=== PATIENT | male | born 1990 | race Caucasian/White ===

== ENCOUNTER 2018-07-18 14:34 | Emergency (ER) | payer MEDICAID, OTHER ==
--- NOTE | 2018-07-18 14:46 | ED Physician Documentation ---
History of Present Illness - Stated complaint Stated Complaint: ETOH WITHDRAWL - Chief complaint Chief Complaint: General - History obtained from History obtained from: Patient - Additonal information Additional information: Patient is a 27-year-old male with history of alcohol use presenting with concerns for alcohol withdrawal and request for resources to help stop drinking alcohol. Patient reports that he has Jay started looking into options such as rehab. Patient reports he has stopped drinking in the past and during one episode of sobriety, he suffered a seizure, likely from alcohol withdrawal. Patient denies hallucinations at this time, but admits to nausea, vomiting, diarrhea without abdominal pain or urinary changes. Patient also believes he felt shaky at home prior to ED arrival. Patient denies use of other recreational drugs except for marijuana. No other improving or worsening factors noted to his symptoms.Last alcohol intake about 2 hours ago. Review of Systems Constitutional: denies: Fever GI: reports: Nausea, Vomiting, Diarrhea. denies: Abdominal Pain PD PAST MEDICAL HISTORY - Past Medical History Past Medical History: No - Past Surgical History Past Surgical History: No - Present Medications Home Medications: Ambulatory Orders Medication Instructions Recorded Confirmed chlordiazePOXIDE [Librium] 25 mg PO Q6H #12 capsule 07/18/18 - Allergies Allergies/Adverse Reactions: Allergies Allergy/AdvReac Type Severity Reaction Status Date / Time No Known Drug Allergies Allergy Verified 07/18/18 14:37 PD ED PE NORMAL - General General: Alert and oriented X 3, No acute distress, Well developed/nourished - HEENT HEENT: Atraumatic, PERRL, Moist mucous membranes, Pharynx benign - Cardiac Cardiac: RRR, No murmur - Respiratory Respiratory: No respiratory distress, Clear bilaterally - Abdomen Abdomen: Normal bowel sounds, Soft, Non tender, Non distended - Derm Derm: Normal color, Warm and dry, No rash - Extremities Extremities: No deformity - Neuro Neuro: Alert and oriented X 3, No motor deficit, No sensory deficit - Psych Psych: Normal affect Results - Vitals Vitals: Vital Signs - 24 hr 07/18/18 07/18/18 14:37 15:09 Temperature 37.3 C Heart Rate 93 Respiratory 16 18 Rate Blood Pressure 149/94 H O2 Saturation 97 Oxygen O2 Source Room air - Labs Labs: Laboratory Tests 07/18/18 07/18/18 07/18/18 14:55 15:05 15:05 WBC 8.5 RBC 4.86 Hgb 15.8 Hct 45.9 MCV 94.4 H MCH 32.5 H MCHC 34.4 RDW 13.4 Plt Count 136 MPV 7.9 Neut # (Auto) 6.1 Lymph # (Auto) 1.7 [place] # (Auto) 0.6 Eos # (Auto) 0.0 Baso # (Auto) 0.1 Absolute Nucleated RBC 0.00 Nucleated RBC % 0.0 Sodium 136 Potassium 4.2 Chloride 97 L Carbon Dioxide 22 Anion Gap 17.0 H BUN 8 Creatinine 0.6 Estimated GFR (MDRD) 159 Glucose 98 Calcium 9.4 Total Bilirubin 1.1 H AST 146 H ALT 146 H Alkaline Phosphatase 121 Total Protein 8.4 H Albumin 5.1 Globulin 3.3 Albumin/Globulin Ratio 1.5 Lipase 31 Urine Color YELLOW Urine Clarity CLEAR Urine pH 5.5 Ur Specific [place] 1.015 Urine Protein TRACE Urine Glucose (UA) NEGATIVE Urine Ketones 15 H Urine Occult Blood TRACE-INTA Urine Nitrite NEGATIVE Urine Bilirubin NEGATIVE Urine Urobilinogen 0.2 (NORMAL) Ur Leukocyte Esterase NEGATIVE Ur Microscopic Review NOT INDICATED Urine Culture Comments NOT INDICATED PD MEDICAL DECISION MAKING - ED course Complexity details: reviewed old records, reviewed results, re-evaluated patient, considered differential, d/w patient ED course: Discussed ER options with patient for alcohol withdrawal, although do not find evidence of acute withdrawal or intoxication on exam. Patient does not appear tachycardic, extremely hypertensive, or tremulous. Patient does admit to last drink being several hours ago. Feel appropriate to give Zofran for reported nausea, as well as banana bag for hydration and chronic alcohol use. Will obtain screening labs and urinalysis to further evaluate, but do not find evidence of acute pathology or systemic illness on exam or per report. Did provide additional resources to patient while in ED.Patient remained comfortable in the ED and did not find evidence of acute withdrawal while he was here. Additionally, vital signs remained within normal limits. Screening lab work and urinalysis returned relatively unremarkable except for a bump in LFTs, likely due to his chronic alcohol use. Advised patient of results and recommendations and discussed use of Librium as an outpatient. Feel that patient is appropriate and responsible enough for such. Also discussed strict return precautions and follow-up. Patient voiced understanding and is comfortable with discharge plan. Departure - Departure Disposition: 01 Home, Self Care Clinical Impression: Alcohol withdrawal Qualifiers: Complication of substance-induced condition: uncomplicated Qualified Code(s): F10.230 - Alcohol dependence with withdrawal, uncomplicated Condition: Good Instructions: ED Withdrawal Alcohol Follow-Up: your,doctor [Other] - Within 3 Days Prescriptions: chlordiazePOXIDE [Librium] 25 mg PO Q6H #12 capsule Comments: Please avoid alcohol and all recreational drugs. Please take Librium as pre scribed to help with alcohol withdrawal symptoms. Do not combine with alcohol or other medications. Please follow-up with primary care physician in next 1-2 days and return to ED sooner if experience worsening symptoms or have other concerns. Recommend attending AA meetings and looking further into detox or rehab facilities.
[2018-07-18 15:04] LABS: BILIRUBIN,URINE NEGATIVE (NEGATIVE); GLUCOSE, URINE (UA) NEGATIVE (NEGATIVE); KETONES,URINE (UA) 15 mg/dL (NEGATIVE); LEUKOCYTE ESTERASE, URINE NEGATIVE (NEGATIVE); NITRITE,URINE NEGATIVE (NEGATIVE); OCCULT BLOOD,URINE TRACE-INTA (NEGATIVE); PH,URINE 5.5 PH (5.0-7.5); PROTEIN,URINE TRACE mg/dL (NEGATIVE); UROBILINOGEN,URINE 0.2 (NORMAL) E.U./dL (NORMAL)
[2018-07-18 15:07] LABS: CLARITY,URINE CLEAR (CLEAR)
[2018-07-18] MEDS: ONDANSETRON 4 MG/2 ML VIAL IVP STA (15:09)
[2018-07-18 15:17] LABS: BASOPHILS # (AUTO) 0.1 10^3/uL (0.0-0.1); BASOPHILS % (AUTO) 1.3 %; EOSINOPHILS % (AUTO) 0.1 %; HGB - HEMOGLOBIN 15.8 g/dL (14.0-18.0); LYMPHOCYTES # (AUTO) 1.7 10^3/uL (1.5-3.5); MEAN CORPUSCULAR HEMOGLOBIN 32.5 pg (27.0-31.0); MEAN CORPUSCULAR HGB CONC 34.4 g/dL (32.0-36.0); MEAN CORPUSCULAR VOLUME 94.4 fL (80.0-94.0); MEAN PLATELET VOLUME 7.9 fL (7.4-11.4); MONOCYTES # (AUTO) 0.6 10^3/uL (0.0-1.0); NEUTROPHILS # (AUTO) 6.1 10^3/uL (1.5-6.6); NEUTROPHILS % (AUTO) 71.6 %; PLT - PLATELET COUNT 136 10^3/uL (130-450); RED BLOOD COUNT 4.86 10^6/uL (4.70-6.10); RED CELL DISTRIBUTION WIDTH 13.4 % (12.0-15.0); WHITE BLOOD COUNT 8.5 x10^3/uL (4.8-10.8)
[2018-07-18 15:29] LABS: ALBUMIN 5.1 g/dL (3.2-5.5); ALBUMIN/GLOBULIN RATIO 1.5 (1.0-2.2); BILIRUBIN,TOTAL 1.1 mg/dL (0.2-1.0); CALCIUM 9.4 mg/dL (8.5-10.3); CREATININE 0.6 mg/dL (0.6-1.2); TOTAL PROTEIN 8.4 g/dL (6.7-8.2)
[2018-07-18] MEDS: FOLIC ACID INJ 1 MG, THIAMINE INJ 100 MG, MAGNESIUM SULFATE 2 GM, MULTIVITAMIN 10 ML in... IV STA ×5 (15:34)
[2018-07-18 16:22] VITALS: BP 157/88
== END 2018-07-18 16:30 | disposition home or self-care (01) ==
LOC: ED 14:34
DX: F10.230 Alcohol dependence with withdrawal, uncomplicated (principal)
CPT/HCPCS: 36415; 80053; 81001; 81003; 83690; 85025; 87086; 96365; 96375; 99283

== ENCOUNTER 2020-01-12 12:51 | Emergency (ER) | payer MEDICAID ==
--- NOTE | 2020-01-12 13:46 | XRAY Report ---
PROCEDURE: Chest 1 View X-Ray INDICATIONS: Chest pain TECHNIQUE: One view of the chest was acquired. COMPARISON: None FINDINGS: Surgical changes and devices: None. Lungs and pleura: No pleural effusions or pneumothorax. Lungs are clear. Mediastinum: Mediastinal contours appear normal. Heart size is normal. Bones and chest wall: No suspicious bony lesions. Overlying soft tissues appear unremarkable. IMPRESSION: Normal portable chest. Reviewed by: Cricket Monson MD on 01/12/2020 12:45 PM [facility] Approved by: Cricket Monson MD on 01/12/2020 12:45 PM [facility] Station ID: [id number]
[2020-01-12 13:49] LABS: BASOPHILS # (AUTO) 0.1 10^3/uL (0.0-0.1); BASOPHILS % (AUTO) 0.5 %; EOSINOPHILS % (AUTO) 0.2 %; LYMPHOCYTES # (AUTO) 1.8 10^3/uL (1.5-3.5); LYMPHOCYTES % (AUTO) 13.7 %; MEAN CORPUSCULAR HEMOGLOBIN 34.4 pg (27.0-31.0); MEAN CORPUSCULAR HGB CONC 34.5 g/dL (32.0-36.0); MEAN CORPUSCULAR VOLUME 99.8 fL (80.0-94.0); MEAN PLATELET VOLUME 10.2 fL (7.4-11.4); MONOCYTES % (AUTO) 7.9 %; NEUTROPHILS % (AUTO) 77.3 %; PLT - PLATELET COUNT 162 10^3/uL (130-450); RED BLOOD COUNT 4.94 10^6/uL (4.70-6.10); RED CELL DISTRIBUTION WIDTH 12.7 % (12.0-15.0)
[2020-01-12 14:02] LABS: ALBUMIN 5.4 g/dL (3.2-5.5); ALBUMIN/GLOBULIN RATIO 1.4 (1.0-2.2); CALCIUM 10.4 mg/dL (8.5-10.3); CREATININE 1.4 mg/dL (0.6-1.2); TOTAL PROTEIN 9.3 g/dL (6.7-8.2)
--- NOTE | 2020-01-12 14:47 | ED Physician Documentation ---
History of Present Illness - Stated complaint Stated Complaint: CHEST/ABD PX, DIFFICULTY BREATHING, SORE THROAT - Chief complaint Chief Complaint: Cardiac - History obtained from History obtained from: Patient - History of Present Illness Timing: How many days ago (5-6) Pain level max: 7 Pain level now: 7 - Additonal information Additional information: 29-year-old male presents to the emergency department stating he has had burning in his chest for the past 5 to 6 days. He has a smoker. Nothing makes it be tter or worse. He states that he was on Protonix at one point, but stopped it secondary to side effects. Has not followed up with his doctor. States he has a new doctor's appointment in March. No fevers. No chills. Has an occasional dry cough, but does smoke a pack per day. He states that he used to be a heavy drinker, but now only drinks approximately 1 time per month. No vomiting. No diarrhea. Review of Systems Ten Systems: 10 systems reviewed and negative Constitutional: denies: Fever, Chills Nose: denies: Rhinorrhea / runny nose, Congestion Throat: denies: Sore throat Cardiac: reports: Chest pain / pressure (burning) Respiratory: denies: Dyspnea, Wheezing GI: denies: Nausea, Vomiting, Diarrhea Skin: denies: Rash Musculoskeletal: denies: Neck pain, Back pain Neurologic: denies: Headache PD PAST MEDICAL HISTORY - Past Medical History Past Medical History: No - Past Surgical History Past Surgical History: No - Present Medications Home Medications: Ambulatory Orders Medication Instructions Recorded Confirmed chlordiazePOXIDE [Librium] 25 mg PO Q6H #12 capsule 07/18/18 Esomeprazole Magnesium [Nexium] 20 mg PO DAILY #30 capsule. 01/12/20 Ondansetron Odt [Zofran] 4 mg TL Q6H PRN #10 tablet 01/12/20 Sucralfate [Carafate] 1 gm PO ACHS #120 tablet 01/12/20 - Allergies Allergies/Adverse Reactions: Allergies Allergy/AdvReac Type Severity Reaction Status Date / Time No Known Drug Allergies Allergy Verified 01/12/20 13:00 - Living Situation Living Situation: reports: With family Living Arrangement: reports: At home - Social History Does the pt smoke?: Yes Smoking Status: Current every day smoker Does the pt drink ETOH?: Yes Does the pt have substance abuse?: Yes Substance Use and Type: Marijuana PD ED PE NORMAL - Vitals Vital signs reviewed: Yes - General General: Alert and oriented X 3, No acute distress, Well developed/nourished - HEENT HEENT: PERRL, Moist mucous membranes - Neck Neck: Supple, no meningeal sign - Cardiac Cardiac: RRR, No murmur - Respiratory Respiratory: No respiratory distress, Clear bilaterally - Abdomen Abdomen: Normal bowel sounds, Soft, Non distended, Other (Palpation epigastric without peritoneal signs.) - Derm Derm: Warm and dry - Extremities Extremities: No edema, No calf tenderness / cord - Neuro Neuro: Alert and oriented X 3 - Psych Psych: Normal mood, Normal affect Results - Vitals Vitals: Vital Signs - 24 hr 01/12/20 01/12/20 01/12/20 12:53 15:31 16:31 Temperature 36.6 C 37.2 C Heart Rate 120 H 89 99 Respiratory 20 14 19 Rate Blood Pressure 148/104 H 148/89 H 160/104 H O2 Saturation 100 100 99 Oxygen O2 Source Room air - EKG (time done) 1254 Rate: Rate (enter#) (123) Rhythm: Sinus tachycardia [place]: Normal Intervals: Normal [place] QRS: Normal Ischemia: Normal ST segments - Labs Labs: Laboratory Tests 01/12/20 01/12/20 01/12/20 13:45 13:45 13:45 WBC 13.0 H RBC 4.94 Hgb 17.0 Hct 49.3 MCV 99.8 H MCH 34.4 H MCHC 34.5 RDW 12.7 Plt Count 162 MPV 10.2 Neut # (Auto) 10.0 H Lymph # (Auto) 1.8 [place] # (Auto) 1.0 Eos # (Auto) 0.0 Baso # (Auto) 0.1 Absolute Nucleated RBC 0.00 Nucleated RBC % 0.0 Sodium 134 L Potassium 3.9 Chloride 91 L Carbon Dioxide 26 Anion Gap 17.0 H BUN 32 H Creatinine 1.4 H Estimated GFR (MDRD) 59 L Glucose 100 Calcium 10.4 H Total Bilirubin 2.0 H AST 70 H ALT 52 Alkaline Phosphatase 91 Troponin I High Sens 3.8 Total Protein 9.3 H Albumin 5.4 Globulin 3.9 Albumin/Globulin Ratio 1.4 Lipase 39 PD MEDICAL DECISION MAKING - ED course Complexity details: reviewed results, re-evaluated patient, considered differential, d/w patient, d/w family ED course: 29-year-old male presents to the emergency department with chest and abdominal pain. Consistent with gastritis/reflux. Given a GI cocktail and symptoms fully resolved. No significant lab abnormalities. Will place on Carafate and PPI/H2 klaus for home. Patient states that he has had reactions to PPIs and H2 blockers in the past. The reaction was that they made him angry. We will have him follow-up with his doctor for further care. Patient counseled regarding signs and symptoms for which I believe and urgent re-evaluation would be necessary. Patient with good understanding of and agreement to plan and is comfortable going home at this time This document was made in part using voice recognition software. While efforts are made to proofread this document, sound alike and grammatical errors may occur. Departure - Departure Disposition: 01 Home, Self Care Clinical Impression: Dehydration Gastritis Qualifiers: Gastritis type: unspecified gastritis Chronicity: acute Gastritis bleeding: without bleeding Qualified Code(s): K29.00 - Acute gastritis without bleeding Condition: Good Instructions: ED Dehydration, ED PUD Vs Gastritis Follow-Up: your,doctor in 1 week [Other] Prescriptions: Sucralfate [Carafate] 1 gm PO ACHS #120 tablet Esomeprazole Magnesium [Nexium] 20 mg PO DAILY #30 capsule. Ondansetron Odt [Zofran] 4 mg TL Q6H PRN #10 tablet PRN Reason: Nausea / Vomiting Comments: Return if you worsen. Follow up with your doctor for further care. you likely need an endoscopy to check for ulcers. Discharge Date/Time: 01/12/20 16:45
[2020-01-12] MEDS ORDERED: SODIUM CHLORIDE 0.9% 1,000 ML IV STA ×2 (14:59→15:49)
[2020-01-12] MEDS ORDERED: ONDANSETRON 4 MG/2 ML VIAL IVP STA (14:59)
[2020-01-12] MEDS ORDERED: MAG HYDROX/AL HYDROX/SIMETH 30 ML UDC PO STA (15:00)
[2020-01-12] MEDS ORDERED: FAMOTIDINE 20 MG TABLET PO STA (15:00)
[2020-01-12] MEDS ORDERED: SUCRALFATE 1 GM/10 ML UDC PO STA (15:00)
[2020-01-12] MEDS ORDERED: LIDOCAINE VISCOUS 2% 15 ML UDC MM STA (15:00)
[2020-01-12 16:32] VITALS: BP 160/104
== END 2020-01-12 16:45 | disposition home or self-care (01) ==
LOC: ED 12:51
DX: E86.0 Dehydration (principal); K29.70 Gastritis, unspecified, without bleeding; F17.200 Nicotine dependence, unspecified, uncomplicated; Z20.828 Contact with and (suspected) exposure to other viral communicable diseases
CPT/HCPCS: 36415; 71045; 80053; 83690; 84484; 85025; 87635; 93005; 96361; 96374; 99284; A9270

== ENCOUNTER 2020-02-10 18:06 | Outpatient (CLI) | payer MEDICAID | END 2020-02-10 18:07 | disposition EMS.NT | LOC: EMS 18:06 | PROVIDERS: ATTEND Surgery | DX: Z03.89 Encounter for observation for other suspected diseases and conditions ruled out (principal) ==

== ENCOUNTER 2020-04-06 20:34 | Outpatient (CLI) | payer MEDICAID | END 2020-04-06 20:35 | disposition EMS.NT | LOC: EMS 20:34 | PROVIDERS: ATTEND Surgery | DX: R56.9 Unspecified convulsions (principal) ==